=== PATIENT | female | born 1960 | race Caucasian/White ===

== ENCOUNTER → 2023-07-15 13:53 | Outpatient (BNVA) | payer MEDICARE, SELFPAY | PROVIDERS: PCP Internal Medicine; Referring Provider Internal Medicine; Visit Provider Surgery | DX: K59.09 Other constipation (principal); R19.5 Other fecal abnormalities; R10.11 Right upper quadrant pain; D64.9 Anemia, unspecified | CPT/HCPCS: 99205 ==

== ENCOUNTER → 2023-08-05 13:24 | Outpatient (BNVA) | payer MEDICARE, SELFPAY | PROVIDERS: PCP Internal Medicine; Referring Provider Internal Medicine; Visit Provider Student in an Organized Health Care Education/Training Program | DX: R19.5 Other fecal abnormalities (principal); K21.9 Gastro-esophageal reflux disease without esophagitis; Z12.11 Encounter for screening for malignant neoplasm of colon; D64.9 Anemia, unspecified | CPT/HCPCS: 99214 ==

== ENCOUNTER 2023-09-04 06:04 | Day surgery (SDC) | payer MEDICARE, SELFPAY ==
[2023-09-04 06:31] VITALS: BP 148/83; PULSE 84; RESP 16; TEMP 36.6; O2SAT 99
[2023-09-04] MEDS: Lactated Ringers 1,000 ML 80 ML IV (06:35)
--- NOTE | 2023-09-04 07:06 | W.ANESPRE ---
General Info Date of Service Date Performed: 09/04/23 Height: 5 ft 4.5 in Weight: 124.4 kg Body Mass Index (BMI): 46.3 Surgical Procedure: Operation Date: 09/04/23 07:35 Proposed Procedure Side Surgeon p Colonoscopy/Gastroscopy Elver Soliz MD Actual Procedure Side Surgeon p Colonoscopy/Gastroscopy Not Applicable Elver Soliz MD Meds Allergies and Home Medications Allergies Allergy/AdvReac Type Severity Reaction Status Date / Time erythromycin base Allergy Severe Nausea Verified 09/04/23 06:29 Sulfa (Sulfonamide Allergy Severe Anaphylaxis Verified 09/04/23 06:29 Antibiotics) diflucan Allergy Severe Anaphylaxis Uncoded 09/04/23 06:29 phenabarbatol Allergy Severe as child Uncoded 09/04/23 06:29 brevatol Allergy unknown Uncoded 09/04/23 06:29 Home Medication Medication Instructions Recorded albuterol sulfate 90 mcg/actuation 2 puff inhalation QID PRN 06/21/23 aerosol inhaler metoprolol succinate 100 mg 100 mg PO HS 06/21/23 tablet,extended release 24 hr cyclobenzaprine 10 mg tablet 10 mg PO HS PRN 07/15/23 gabapentin 100 mg capsule 100 mg PO TID 07/15/23 duloxetine 60 mg capsule,delayed 60 mg PO BID 08/05/23 release omeprazole 40 mg capsule,delayed 40 mg PO DAILY 08/05/23 release methadone 5 mg tablet 35 mg PO DAILY 09/03/23 Current Visit Medications: Current Medications Generic Name Dose Route Start Last Admin Trade Name Freq PRN Reason Stop Dose Admin Ringer's Solution 1,000 mls @ 80 mls/hr 09/04/23 06:00 09/04/23 06:35 IV 09/04/23 23:59 80 mls/hr INFUSION LIANG Administration IV Miscellaneous Supplies 1 each 09/04/23 06:00 Iv Access IV 09/04/23 23:59 DIRECTED LIANG Sodium Chloride 0 ml 09/04/23 06:00 Normal Saline Flush 10 Ml Syr IV 09/04/23 23:59 PRN PRN Sodium Chloride 0 ml 09/04/23 06:00 Normal Saline 10 Ml Vial IJ 09/04/23 23:59 DIRECTED PRN Sterile Water 0 ml 09/04/23 06:00 Water,Injection,Sterile 10 Ml Vial IJ 09/04/23 23:59 DIRECTED PRN PFSH Active Problems Active Problems: Problem Status Onset Code Recurrent right upper quadrant abdominal pain R10.11 Chronic constipation K59.09 Fecal occult blood test positive R19.5 Tonsil stone J35.8 Deviated nasal septum J34.2 Medical History Medical History Radiculopathy, thoracic region Tarsal tunnel syndrome, bilateral lower limbs Systemic lupus Obstructive sleep apnea Hypertension Gastro-esophageal reflux disease without esophagitis Splenomegaly Von Willebrand disease Anemia Allergic rhinitis Surgical History Surgical History Hx of foot surgery Hx of spinal fusion L5-S1 Hx of shoulder replacement (R) History of bilateral knee replacement Hx laparoscopic cholecystectomy History of colonoscopy (~04/15/13) [place], [place] Normal Tobacco Smoking/Tobacco Use Status: Former Tobacco Use Alcohol Alcohol Intake: current Alcohol intake frequency: holidays/special occasions only Substance Use Substance use: Never Substance use type: does not use Vital Signs and Lab Results Vital Signs Most Recent Vital Signs in EMR: Most Recent Vital Signs Temp Pulse Resp BP Pulse Ox 36.6 C 84 16 148/83 H 99 09/04/23 06:31 09/04/23 06:31 09/04/23 06:31 09/04/23 06:31 09/04/23 06:31 Lab Results Blood Type / Crossmatch: No Data to Display Complete Blood Count: No Data to Display Complete Metabolic Panel: No Data to Display Liver Function Panel: No Data to Display Coagulation Panel: No Data to Display Cardiac Panel: No Data to Display Arterial Blood Gas: No Data to Display Venous Blood Gas: No Data to Display Pancreas Panel: No Data to Display Thyroid Panel: No Data to Display Infectious Disease: No Data to Display Blood Cultures: No Data to Display Toxicology Panel: No Data to Display Anesthesia Assessment and Plan Anesthesia History Personal History: Awareness Under Anesthesia Family History: No Family History of Anesthesia Complications Exercise Tolerance Exercise Tolerance: Metabolic Equivalents>4 Cardiac & Pulmonary Exam Cardiac Exam: Normal S1/S2 Heart Sounds Pulmonary Exam: Clear Bilateral Breath Sounds Implantable Cardiac Device Does patient have a Pacemaker or an ICD?: No Airway Exam Known Difficult Airway: No Mallampati Class: 3 Mouth Opening: Normal (> 3cm) Thyromental Distance: Greater than 3 cm Neck Range of Motion: Full ROM Neck Circumference: Thick Teeth Condition: Generalized Poor Dentition (Several upper teeth loose) ASA Classification ASA Score: ASA 3 Emergency Case?: No NPO Status NPO Status: NPO Clears >2 hours, Solids >8 hours Anesthesia Plan Resuscitation Status: Full Code Anesthesia Technique: General Anesthesia Airway Planned: Endotracheal Tube Monitors Used: Standard Monitors and SedLine
[2023-09-04 07:08] VITALS: BMI 46.3
--- NOTE | 2023-09-04 07:54 | STOM_PTH ---
PATIENT: Jayna Smith LOC: [facility] U#:[id number] AGE/SX: 63/F ROOM: RE09/04/[address]: Elver Soliz : 1960 BED: DIS: 09/04/2023 SPEC #: [id number] RECD: 09/04/23 12:56 STATUS: LAKIA Erendira #: [id number] BORIS: 09/04/23 07:[address]: Elver Soliz DEPT: Surgical Specimen RECD BY: Deanna Boo ENTERED: 09/04/23 12:57 SP TYPE: STOMACH OTHR DR: Lexie Pulido Tissues: 1 - STOMACH BIOPSY 2 - STOMACH BIOPSY 3 - ESOPHAGUS BIOPSY Procedures: GROSS AND MICRO LEVEL 4 Comments: [id number]
[2023-09-04 08:19] VITALS: BP 123/82; PULSE 87; RESP 18; TEMP 36.4; O2SAT 96
--- NOTE | 2023-09-04 08:19 | COLE_ITS ---
Date of service: 09/04/23 Time of Service: 08:19 Colonoscopy Report Procedure Description: PROCEDURES PERFORMED: 1. Colonoscopy PREOPERATIVE DIAGNOSIS: Surveillance colonoscopy POSTOPERATIVE DIAGNOSIS: Grade 1 internal hemorrhoids, mild external hemorrhoids SURGEON: Allison Soliz MD INDICATION FOR PROCEDURE: the patient is a 63-year-old woman with no family history of colon cancer and prior colonoscopy was normal. She recently had a fecal occult positive stool test. No symptoms of concern. FINDINGS: The terminal ileum was normal. No polyps were found. No areas of inflammation. No diverticular disease. Mild grade 1 internal hemorrhoids are noted and some very minimal external hemorrhoid disease is noted. SURVEILLANCE interval/FOLLOW-UP: 10 years SPECIMENS: None EBL: Minimal COMPLICATIONS: None QUALITY of prep: Excellent Procedure in detail: The patient gave written consent and was in agreement with the indications, the potential risks as well as the benefits of the procedure. She was turned from upper endoscopy (see separate procedure note) and anesthesia was continued and the started the colonoscopy portion of the procedure. Digital rectal and visual examination was performed and grossly within normal limits. A well-lubricated flexible colonoscope was then introduced and passed without any notable difficulty all the way to the cecum identified by the ileocecal valve and the appendiceal orifice. The terminal ileum was intubated a nd looked completely normal. The scope was then slowly withdrawn with the above-noted findings. The patient tolerated the procedure well and was taken to the PACU in hemodynamically stable condition.
--- NOTE | 2023-09-04 08:19 | W.PM.ENDDOP ---
Date of service: 09/04/23 Time of Service: 08:19 Endoscopy Report PROCEDURE DESCRIPTION: PROCEDURES PERFORMED: 1. EGD with biopsies 2. Cold forceps polypectomy PREOPERATIVE DIAGNOSIS: Positive fecal occult blood test POSTOPERATIVE DIAGNOSIS: Bile reflux, gastric fundus polyps SURGEON: Allison Soliz MD INDICATION FOR PROCEDURE: 63-year-old woman had a positive fecal occult blood test. Has a history of gastritis in the distant past. Has no clinical symptoms of concern. FINDINGS: D2/D3 = normal D1/bulb = normal - no ulcers or inflammation Pylorus = normal Antrum = normal appearance, no ulcers, cold forceps biopsies were taken to rule out H. pylori routinely (bile visually present coating the antrum consistent with the diagnosis of bile reflux) Body = normal appearance, biopsies taken with cold forceps technique routinely (bile present in the body, just like the antrum) Fundus = normal, a few, 2-3 mm benign?appearing polyps are noted. 1 was removed with cold forceps technique to confirm benign histology. A scant amount of bile is pooled within the fundus. Cardia = normal Hiatus = no hiatal hernia Distal esophagus = no inflammation, no esophagitis, no Landry's, no stricture. I took biopsies to confirm benign/normal histology. Mid esophagus = normal Proximal esophagus/hypopharynx/vocal cords = normal SURVEILLANCE-INTERVAL/FOLLOW-UP: Follow-up with PCP. Repeat EGD unlikely to be necessary. Specimens: Yes EBL: Minimal COMPLICATIONS: None Procedure in detail: The patient gave written consent and was in agreement with the indications, the potential risks as well as the benefits of the procedure. The patient was taken to the endoscopy suite and laid on their left side. Anesthesia was given which was tolerated well. We performed a timeout and we are in agreement I started the procedure. A well-lubricated endoscope was gently and carefully advanced down the esophagus, into the stomach the scope was and through the pylorus into the duodenum. The scope was then slowly withdrawn with the above-noted findings/interventions. The patient tolerated the procedure well and was then turned for colonoscopy (see separate procedure note).
--- NOTE | 2023-09-04 08:19 | W.PM.DSUDISC ---
Date of service: 09/04/23 Time of Service: 08:19 Discharge Plan Disposition Patient Disposition: Home Condition: Good Discharge Details Attending Provider: Elver Soliz Primary Care Provider: Lexie Pulido Home Meds and New Rx's Prescriptions: No Action cyclobenzaprine 10 mg tablet 10 mg PO HS PRN gabapentin 100 mg capsule 100 mg PO TID omeprazole 40 mg capsule,delayed release(DR/EC) 40 mg PO DAILY metoprolol succinate 100 mg tablet extended release 24 hr 100 mg PO HS albuterol sulfate 90 mcg/actuation HFA aerosol inhaler 2 puff inhalation QID PRN duloxetine 60 mg capsule,delayed release(DR/EC) 60 mg PO BID methadone 5 mg tablet 35 mg PO DAILY Discharge Instructions Additional Instructions: FINDINGS: Your stomach and your colon and rectum all appear healthy and normal. There were no inflammatory findings or anything concerning to be causing anemia. Follow-up with Dr. Pulido to discuss further. Repeat a colonoscopy in 10 years. You should not need to have another endoscopy. Activity:: Activity as Tolerated Diet:: As Tolerated
[2023-09-04 08:46] VITALS: BP 126/68; PULSE 82; RESP 18; TEMP 36.5; O2SAT 98
--- NOTE | 2023-09-04 08:47 | W.ANESPOSTOP ---
Postoperative Evaluation Date, Time and Location Date Performed: 09/04/23 Time Performed: 08:45 Patient Location: Day Surgery Unit Vital Signs Most Recent Imported Vital Signs: Most Recent Vital Signs Temp Pulse Resp BP Pulse Ox 36.4 C L 87 18 123/82 96 09/04/23 08:19 09/04/23 08:19 09/04/23 08:19 09/04/23 08:19 09/04/23 08:19 Pain Score Most Recent Pain Score: Most Recent Pain Score Pain Level 0 09/04/23 08:19 Assessment Mental Status: Awake (Alert & Oriented to Patient Baseline) Airway and Respiratory Function: Patent airway with normal (patient baseline) respiratory exam Cardiovascular Function: Hemodynamically Stable Hydration Status: Adequately Hydrated Nausea & Vomiting: No Nausea or Vomiting Pain: Pt. Denies Any Pain Peripheral Nerve Block: Patient did not receive a nerve block
== END 2023-09-04 09:04 | disposition home or self-care (01) ==
PROVIDERS: PCP Internal Medicine; Visit Provider Student in an Organized Health Care Education/Training Program
PROC: (CPT 43239; principal; 2023-09-04 07:30)
DX: Z12.11 Encounter for screening for malignant neoplasm of colon (principal); K64.0 First degree hemorrhoids; K31.7 Polyp of stomach and duodenum; K31.89 Other diseases of stomach and duodenum
CPT/HCPCS: 43239; G0121; 00123; 88305; J2001; J2250; J2405; J2704